=== PATIENT | female | born 1945 | race Caucasian/White ===

== ENCOUNTER 2017-08-12 09:50 | Inpatient (IN) | payer MEDICARE, OTHER ==
[~2017-08-12] VITALS: Ht 147.3 cm; Wt 75.9 kg
[2017-08-12] MEDS ORDERED: FLUT16SP2 BOTHNARES (11:38)
[2017-08-12] MEDS ORDERED: CITA20TA19 PO (11:38)
[2017-08-12] MEDS ORDERED: ASPI-1265 PO (11:38)
[2017-08-12] MEDS ORDERED: CELE-193 PO (11:38)
[2017-08-12] MEDS ORDERED: HYDR25TA4 PO (11:38)
[2017-08-12] MEDS ORDERED: CART1TAB4 PO (11:38)
[2017-08-12] MEDS ORDERED: MULT-38 PO (11:40)
[2017-08-12] MEDS ORDERED: ALBU6.7H INH (11:40)
[2017-08-12] MEDS ORDERED: MOME13HF2 INH (11:47)
[2017-08-12] MEDS ORDERED: CETI10TA18 PO (11:50)
[2017-08-12] MEDS ORDERED: AMLO10TA4 PO (11:51)
[2017-08-13] MEDS ORDERED: CYCL5TAB PO (09:53)
[2017-08-13] MEDS ORDERED: ATOR10TA70 PO (09:53)
[2017-08-13] MEDS ORDERED: ROPI0.5T2 PO (09:53)
[2017-08-13] MEDS ORDERED: OLME20TA14 PO (10:02)
[2017-08-13] MEDS ORDERED: robitussin PO (10:04)
[2017-08-16] VITALS (19 sets, daily range): BP systolic 114–140; BP diastolic 57–81
[2017-08-16] MEDS ORDERED: ringers solution, lacted 1,000 ML IV SCH ×2 (05:00→08:34)
[2017-08-16] MEDS ORDERED: acetaminophen 325mg tablet PO ONE (05:30)
[2017-08-16] MEDS ORDERED: tranexamic acid inj. 1,000 MG in normal saline 100ml IV soln 90 ML IV ONE (05:30)
[2017-08-16] MEDS ORDERED: famotidine 20mg tablet PO ONE (05:30)
[2017-08-16] MEDS ORDERED: oxyCODONE SR 10mg (sust. release) tab PO ONE (05:30)
[2017-08-16] MEDS ORDERED: albuterol 2.5 MG/3 ML nebule NEB ONE (05:30)
[2017-08-16] MEDS ORDERED: gabapentin 300mg capsule PO ONE (05:30)
[2017-08-16] MEDS ORDERED: ceFAZolin inj. 2,000 MG in dextrose 5%-water 100 ML IV ONE (05:30)
[2017-08-16] MEDS ORDERED: LIDOcaine 1% (10mg/ml) 2ml vial ONE (06:01)
[2017-08-16] MEDS ORDERED: ROPIVAcaine 0.5% (5mg/ml) 30ml vial ONE ×2 (06:50→07:32)
[2017-08-16] MEDS ORDERED: bacitracin inj 150,000 UNIT in sodium chloride irrig. sol 3,000 ML IR ONE (07:00)
[2017-08-16] MEDS ORDERED: cloNIDine hcl/PF 100mcg/ml inj ONE (07:13)
[2017-08-16] MEDS ORDERED: MIDAZolam 1mg/ml 10ml vial ONE (07:14)
[2017-08-16] MEDS ORDERED: fentaNYL/PF 50MCG/1 ML 2ML syringe ONE (07:15)
[2017-08-16] MEDS ORDERED: ondansetron/PF 4mg/2ml inj IV PRN ×2 (08:35→10:00)
[2017-08-16] MEDS ORDERED: meperidine/PF 50mg/ml syringe IV PRN ×3 (08:35)
[2017-08-16] MEDS ORDERED: proCHLORperazine 10 MG/2 ml inj IV PRN (08:35)
[2017-08-16] MEDS ORDERED: morphine 4 MG/ML inj SYRINge IV PRN ×2 (08:35)
[2017-08-16] MEDS ORDERED: ceFAZolin 1000mg inj ONE (09:06)
[2017-08-16] MEDS ORDERED: non-formulary drug (Albuterol Sulfate (Proventil Hfa) 2 PUFFS) INH PRN (09:55)
[2017-08-16] MEDS ORDERED: fluticasone nasal spray 16GM bottle NS PRN (09:55)
[2017-08-16] MEDS ORDERED: acetaminophen 325mg tablet PO PRN (10:00)
[2017-08-16] MEDS ORDERED: magnesium hydroxide 30ml (MOM) UD suspension PO PRN (10:00)
[2017-08-16] MEDS ORDERED: bisacodyl 10mg suppository rectal RC PRN (10:00)
[2017-08-16] MEDS ORDERED: diphenhydrAMINE 25mg capsule PO PRN ×2 (10:00)
[2017-08-16] MEDS ORDERED: HYDROmorphone inj. 0.5 MG/0.5 ML DISP.SYRIN IV PRN (10:00)
[2017-08-16] MEDS ORDERED: albuterol 2.5 MG/3 ML nebule NEB PRN (10:03)
[2017-08-16] MEDS: gabapentin 300mg capsule PO SCH ×2 (14:45→20:54)
[2017-08-16] MEDS: oxyCODONE/APAP 10/325mg tablet PO PRN (14:45)
[2017-08-16] MEDS: acetaminophen 325mg tablet PO SCH ×2 (14:45→20:58)
[2017-08-16] MEDS: potassium cl 20mEq in 1/2 NS 1,000 ML IV SCH ×2 (14:46→21:55)
[2017-08-16] MEDS: ceFAZolin 1GM/D5W- ADD-VANTAGE 50 ML IV SCH (16:19)
[2017-08-16] MEDS: CITALOpram 10mg tablet PO SCH (20:55)
[2017-08-16] MEDS: amLODIPine 5mg tablet PO SCH (20:55)
[2017-08-16] MEDS: ascorbic acid 500mg tablet PO SCH (20:55)
[2017-08-16] MEDS: sennosides 8.6mg tablet PO SCH (20:56)
[2017-08-16] MEDS: ROPINIRole 0.25mg tablet PO SCH (20:56)
[2017-08-16] MEDS: losartan 50mg tablet PO SCH (20:56)
[2017-08-16] MEDS: celeCOXIB 100mg capsule PO SCH (20:57)
[2017-08-17] MEDS: ceFAZolin 1GM/D5W- ADD-VANTAGE 50 ML IV SCH (00:44)
[2017-08-17] MEDS: acetaminophen 325mg tablet PO SCH (02:00)
[2017-08-17] MEDS: oxyCODONE/APAP 10/325mg tablet PO PRN ×4 (05:13→20:38)
[2017-08-17] MEDS: potassium cl 20mEq in 1/2 NS 1,000 ML IV SCH ×3 (05:15→17:56)
[2017-08-17 06:00] VITALS: BP 111/59
[2017-08-17 06:12] LABS: BASOPHILS % (AUTO) 0.2 % (0-1); EOSINOPHILS # (AUTO) 0.2 X10'3 (0-0.9); EOSINOPHILS % (AUTO) 1.9 % (0-6); HEMATOCRIT 35.6 % (35.0-45.0); HEMOGLOBIN 12.1 g/dl (12.0-16.0); LYMPHOCYTES # (AUTO) 1.5 X10'3 (1.1-4.8); LYMPHOCYTES % (AUTO) 14.8 % (21-51); MEAN CORPUSCULAR HEMOGLOBIN 28.5 PG (27.0-31.0); MEAN CORPUSCULAR VOLUME 83.8 FL (78-98); MEAN PLATELET VOLUME 9.2 FL (7.4-10.4); MONOCYTES # (AUTO) 0.7 X10'3 (0-0.9); MONOCYTES % (AUTO) 6.7 % (2-12); NEUTROPHILS # (AUTO) 7.9 X10'3 (1.8-7.7); NEUTROPHILS % (AUTO) 76.4 % (42-75); PLATELET COUNT 214 X10'3 (140-440); RED BLOOD COUNT 4.25 X10'6 (4.20-5.60); RED CELL DISTRIBUTION WIDTH 15.1 % (11.5-14.5); WHITE BLOOD COUNT 10.4 X10'3 (4.5-11.0)
[2017-08-17 06:29] LABS: ANION GAP 10 (8-16); CHLORIDE 106 MMOL/L (99-107); POTASSIUM 4.3 MMOL/L (3.5-5.1); SODIUM 142 MMOL/L (135-145); TOTAL CARBON DIOXIDE 26.1 MMOL/L (24-32)
[2017-08-17 06:40] LABS: INR 1.5 INR; PROTHROMBIN TIME 15.3 SECONDS (9.0-12.0)
[2017-08-17] MEDS: HYDROchlorothiazide 25mg tablet PO SCH (07:43)
[2017-08-17] MEDS: gabapentin 300mg capsule PO SCH ×3 (07:43→20:29)
[2017-08-17] MEDS: celeCOXIB 100mg capsule PO SCH ×2 (07:43→20:29)
[2017-08-17] MEDS: atorvastatin 10mg tablet PO SCH (07:43)
[2017-08-17] MEDS: ROPINIRole 0.25mg tablet PO SCH ×2 (07:44→20:41)
[2017-08-17] MEDS: multivitamins, therapeutics tablet PO SCH (07:44)
[2017-08-17] MEDS: ascorbic acid 500mg tablet PO SCH ×2 (07:44→20:28)
[2017-08-17 07:45] VITALS: BP 130/63
[2017-08-17 10:00] VITALS: BP 150/67
[2017-08-17] MEDS ORDERED: warfarin 3mg tablet PO ONE (10:00)
[2017-08-17 14:00] VITALS: BP 130/55
[2017-08-17 18:00] VITALS: BP 149/65
[2017-08-17] MEDS: sennosides 8.6mg tablet PO SCH (20:28)
[2017-08-17] MEDS: losartan 50mg tablet PO SCH (20:29)
[2017-08-17] MEDS: CITALOpram 10mg tablet PO SCH (20:29)
[2017-08-17] MEDS: amLODIPine 5mg tablet PO SCH (20:29)
[2017-08-17 22:00] VITALS: BP 137/58
[2017-08-18] MEDS: potassium cl 20mEq in 1/2 NS 1,000 ML IV SCH (01:56)
[2017-08-18] MEDS: oxyCODONE/APAP 10/325mg tablet PO PRN ×3 (05:33→20:22)
[2017-08-18 05:55] LABS: INR 1.4 INR; PROTHROMBIN TIME 14.6 SECONDS (9.0-12.0)
[2017-08-18 06:00] VITALS: BP 105/47
[2017-08-18 06:57] LABS: BASOPHILS % (AUTO) 0.5 % (0-1); EOSINOPHILS # (AUTO) 0.3 X10'3 (0-0.9); EOSINOPHILS % (AUTO) 3.7 % (0-6); HEMATOCRIT 32.5 % (35.0-45.0); HEMOGLOBIN 11.2 g/dl (12.0-16.0); LYMPHOCYTES # (AUTO) 2.1 X10'3 (1.1-4.8); LYMPHOCYTES % (AUTO) 23.5 % (21-51); MEAN CORPUSCULAR HEMOGLOBIN 28.9 PG (27.0-31.0); MEAN CORPUSCULAR HGB CONC 34.5 % (33.0-36.5); MEAN CORPUSCULAR VOLUME 83.7 FL (78-98); MEAN PLATELET VOLUME 9.6 FL (7.4-10.4); MONOCYTES # (AUTO) 0.6 X10'3 (0-0.9); MONOCYTES % (AUTO) 6.5 % (2-12); NEUTROPHILS # (AUTO) 5.8 X10'3 (1.8-7.7); NEUTROPHILS % (AUTO) 65.8 % (42-75); PLATELET COUNT 202 X10'3 (140-440); RED BLOOD COUNT 3.89 X10'6 (4.20-5.60); RED CELL DISTRIBUTION WIDTH 14.4 % (11.5-14.5); WHITE BLOOD COUNT 8.8 X10'3 (4.5-11.0)
[2017-08-18] MEDS: HYDROchlorothiazide 25mg tablet PO SCH (08:00)
[2017-08-18 10:00] VITALS: BP 130/64
[2017-08-18] MEDS ORDERED: acetaminophen 325mg tablet PO PRN (10:00)
[2017-08-18] MEDS ORDERED: warfarin 5mg tablet PO ONE (10:00)
[2017-08-18] MEDS: atorvastatin 10mg tablet PO SCH (10:43)
[2017-08-18] MEDS: celeCOXIB 100mg capsule PO SCH ×2 (10:44→20:24)
[2017-08-18] MEDS: gabapentin 300mg capsule PO SCH ×3 (10:44→20:23)
[2017-08-18] MEDS: multivitamins, therapeutics tablet PO SCH (10:45)
[2017-08-18] MEDS: ascorbic acid 500mg tablet PO SCH ×2 (10:45→20:23)
[2017-08-18] MEDS: ROPINIRole 0.25mg tablet PO SCH ×2 (10:45→20:23)
[2017-08-18] MEDS: Protein Shake (high protein) 240ml (8oz) cup PO SCH ×2 (13:00→18:00)
[2017-08-18 18:00] VITALS: BP 108/59
[2017-08-18 20:21] VITALS: BP 130/70
[2017-08-18] MEDS: losartan 50mg tablet PO SCH (20:23)
[2017-08-18] MEDS: CITALOpram 10mg tablet PO SCH (20:24)
[2017-08-18] MEDS: amLODIPine 5mg tablet PO SCH (20:24)
[2017-08-18] MEDS: sennosides 8.6mg tablet PO SCH (20:25)
[2017-08-18 22:00] VITALS: BP 127/61
[2017-08-19 05:00] VITALS: BP 123/54
[2017-08-19] MEDS: oxyCODONE/APAP 10/325mg tablet PO PRN ×2 (05:41→10:03)
[2017-08-19 05:55] LABS: INR 1.5 INR; PROTHROMBIN TIME 15.7 SECONDS (9.0-12.0)
[2017-08-19 05:59] LABS: BASOPHILS % (AUTO) 0.5 % (0-1); EOSINOPHILS # (AUTO) 0.4 X10'3 (0-0.9); EOSINOPHILS % (AUTO) 4.8 % (0-6); HEMATOCRIT 32.4 % (35.0-45.0); HEMOGLOBIN 10.9 g/dl (12.0-16.0); LYMPHOCYTES # (AUTO) 1.8 X10'3 (1.1-4.8); LYMPHOCYTES % (AUTO) 24.4 % (21-51); MEAN CORPUSCULAR HEMOGLOBIN 28.3 PG (27.0-31.0); MEAN CORPUSCULAR HGB CONC 33.7 % (33.0-36.5); MEAN CORPUSCULAR VOLUME 84.1 FL (78-98); MEAN PLATELET VOLUME 9.4 FL (7.4-10.4); MONOCYTES # (AUTO) 0.5 X10'3 (0-0.9); MONOCYTES % (AUTO) 7.3 % (2-12); NEUTROPHILS # (AUTO) 4.6 X10'3 (1.8-7.7); PLATELET COUNT 200 X10'3 (140-440); RED BLOOD COUNT 3.85 X10'6 (4.20-5.60); RED CELL DISTRIBUTION WIDTH 14.9 % (11.5-14.5); WHITE BLOOD COUNT 7.3 X10'3 (4.5-11.0)
[2017-08-19] MEDS: multivitamins, therapeutics tablet PO SCH (09:02)
[2017-08-19] MEDS: atorvastatin 10mg tablet PO SCH (09:02)
[2017-08-19] MEDS: HYDROchlorothiazide 25mg tablet PO SCH (09:02)
[2017-08-19] MEDS: celeCOXIB 100mg capsule PO SCH (09:02)
[2017-08-19] MEDS: ascorbic acid 500mg tablet PO SCH (09:03)
[2017-08-19] MEDS: ROPINIRole 0.25mg tablet PO SCH (09:03)
[2017-08-19] MEDS: Protein Shake (high protein) 240ml (8oz) cup PO SCH (09:03)
[2017-08-19] MEDS: gabapentin 300mg capsule PO SCH (09:03)
[2017-08-19 10:00] VITALS: BP 114/49
[2017-08-19] MEDS ORDERED: warfarin 4mg tablet PO ONE (10:00)
== END 2017-08-19 11:05 | DRG 470 ==
LOC: EDSTATUS 09:50 → PAS IN 08-16 05:33 → EDSTATUS 08-16 07:30 → ORTHO 4S 08-16 11:15
PROVIDERS: ADMIT Specialist; ATTEND Specialist
PROC: 3E0T3BZ Introduction of Anesthetic Agent into Peripheral Nerves and Plexi, Percutaneous Approach (ICD-10-PCS; 2017-08-16)
PROC: 0SRC0J9 Replacement of Right Knee Joint with Synthetic Substitute, Cemented, Open Approach (ICD-10-PCS; principal; 2017-08-16 07:21)
DX: M17.11 Unilateral primary osteoarthritis, right knee (principal); D62 Acute posthemorrhagic anemia; G25.81 Restless legs syndrome; G47.30 Sleep apnea, unspecified; E78.5 Hyperlipidemia, unspecified; R05 Cough; E66.9 Obesity, unspecified; I10 Essential (primary) hypertension; F32.9 Major depressive disorder, single episode, unspecified; J45.909 Unspecified asthma, uncomplicated; Z96.641 Presence of right artificial hip joint; Z88.5 Allergy status to narcotic agent; Z79.899 Other long term (current) drug therapy; Z79.82 Long term (current) use of aspirin; Z68.35 Body mass index [BMI] 35.0-35.9, adult
CPT/HCPCS: 36415; 73560; 80051; 85025; 85610; 87070; 93880; 94640; 94760; 97110; 97116; 97162; 97530; A6449; A6455; A7000; C1713; C1758; C1776; J0690; J0735; J2250; J2270; J2795; J3010; J3490; J7030; J7060; J7120

== ENCOUNTER 2018-07-04 05:40 | Inpatient (IN) | payer MEDICARE, OTHER | END 2018-07-07 14:30 | LOC: PAS IN 05:40 → ORTHO 4S 11:00 | PROC: 0SRD0J9 Replacement of Left Knee Joint with Synthetic Substitute, Cemented, Open Approach (ICD-10-PCS; principal; 2018-07-04 07:20) | DX: M17.12 Unilateral primary osteoarthritis, left knee (principal); G25.81 Restless legs syndrome ==